=== PATIENT | female | born 1995 | race Two or more races ===

== ENCOUNTER 2021-01-29 19:58 | Inpatient (IN) | payer OTHER ==
[~2021-01-29] VITALS: Ht 165.1 cm; Wt 77.1 kg
== END 2021-01-31 12:13 | disposition home or self-care (01) | DRG 343 ==
LOC: ER 19:58 → SURH 01-30 01:21 → SEC-K 01-30 01:21 → SURH 01-30 01:23
PROVIDERS: ADMIT Surgery; ATTEND Surgery
PROC: BW2110Z Computerized Tomography (CT Scan) of Abdomen and Pelvis using Low Osmolar Contrast, Unenhanced and Enhanced (ICD-10-PCS; 2021-01-29)
PROC: 0DTJ0ZZ Resection of Appendix, Open Approach (ICD-10-PCS; principal; 2021-01-30 07:00)
DX: K35.80 Unspecified acute appendicitis (principal)